=== PATIENT | female | born 1965 | race Caucasian/White ===

== ENCOUNTER 2017-03-31 01:46 | Emergency (ER) | payer SELFPAY ==
[~2017-03-31] VITALS: Ht 162.6 cm; Wt 61.2 kg
--- NOTE | 2017-03-31 02:18 | NUR ---
Pt c/o wound to head with discharge. Pt seen by Dr. Barbour. Pt given first dose of PO ABT. Pt stable for discharge per MD. Pt given ACI. Pt verbalized understanding of dc instructions. Pt ambulated out of er with steady gait.
[2017-03-31 02:20] VITALS: BP 127/88
== END 2017-03-31 02:21 | disposition home or self-care (01) ==
LOC: ER 01:48
DX: L08.9 Local infection of the skin and subcutaneous tissue, unspecified (principal); B95.8 Unspecified staphylococcus as the cause of diseases classified elsewhere; I10 Essential (primary) hypertension; Z88.2 Allergy status to sulfonamides; Z86.14 Personal history of Methicillin resistant Staphylococcus aureus infection
CPT/HCPCS: A4663; Q0162

== ENCOUNTER 2017-05-12 03:50 | Emergency (ER) | payer SELFPAY ==
[~2017-05-12] VITALS: Ht 160 cm; Wt 61.2 kg
--- NOTE | 2017-05-12 04:12 | NUR ---
PT WITH ABD PAIN N/V X 3DAYS DR WILLAMS TO EXAM
[2017-05-12] MEDS ORDERED: ONDANSETRON 4 MG/2 ML VIAL IV ONE (04:15)
[2017-05-12] MEDS ORDERED: HYDROMORPHONE 1 MG/1 ML DISP.SYRIN IV ONE (04:15)
[2017-05-12 04:43] LABS: BASOPHILS # (AUTO) 0.1 K/uL (0.0-8.0); BASOPHILS % (AUTO) 0.8 % (0.0-2.0); CREATININE 0.7 mg/dL (0.6-1.3); EOSINOPHILS # (AUTO) 0.2 K/uL (0.0-0.7); EOSINOPHILS % (AUTO) 3.3 % (0.0-7.0); HEMATOCRIT 43.7 % (37-47); HEMOGLOBIN 14.6 G/DL (12.0-16.0); LYMPHOCYTES # (AUTO) 2.5 K/UL (0.8-4.8); LYMPHOCYTES % (AUTO) 36.8 % (20.5-51.5); MEAN CORPUSCULAR HEMOGLOBIN 30.1 UUG (27.0-31.0); MEAN CORPUSCULAR HGB CONC 34 g/dL (32.0-37.0); MEAN CORPUSCULAR VOLUME 90.1 FL (81.0-99.0); MONOCYTES # (AUTO) 0.4 K/UL (0.1-1.30); MONOCYTES % (AUTO) 6.1 % (0.0-11.0); NEUTROPHILS # (AUTO) 3.6 K/UL (1.8-8.9); PLATELET COUNT (AUTO) 250 K/UL (150-450); POTASSIUM 4.1 mmol/L (3.5-5.1); RED BLOOD CELL COUNT(AUTO) 4.86 MIL/UL (4.2-5.4); WHITE BLOOD COUNT (AUTO) 6.8 K/UL (4.0-11.2)
--- NOTE | 2017-05-12 04:45 | NUR ---
ON MONITOR/PULSE OX ;IV STARTED RT AC 20G SALINE KIKI MEDS GIVEN ORDERED
[2017-05-12 04:49] LABS: BILIRUBIN,DIRECT 0.1 mg/dL (0.0-0.2); BILIRUBIN,TOTAL 0.3 mg/dL (0.2-1.0); TOTAL PROTEIN, SERUM 7.4 g/dL (6.4-8.2)
--- NOTE | 2017-05-12 05:06 | NUR ---
PT UNCOOPERATIVE FOR US GALLBLADDER DR WILLAMS TO TALK TO PT MED ORDERED
[2017-05-12] MEDS ORDERED: KETOROLAC TROMETHAMINE 30 MG INJ IVP ONE (05:15)
[2017-05-12 05:26] VITALS: BP 139/84
[2017-05-12] MEDS ORDERED: KETOROLAC TROMETHAMINE 30 MG INJ ONE (05:28)
--- NOTE | 2017-05-12 05:49 | NUR ---
Patient discharged to home in stable conditon. Written and verbal after care instructions given. Patient verbalizes understanding of instructions.IV D'CD SITE WNL
== END 2017-05-12 05:52 | disposition home or self-care (01) ==
LOC: ER 03:52
DX: K80.50 Calculus of bile duct without cholangitis or cholecystitis without obstruction (principal); K85.90 Acute pancreatitis without necrosis or infection, unspecified; I10 Essential (primary) hypertension; Z76.5 Malingerer [conscious simulation]; Z88.1 Allergy status to other antibiotic agents; Z88.2 Allergy status to sulfonamides; Z88.6 Allergy status to analgesic agent
CPT/HCPCS: 36415; 80048; 80076; 83690; 84484; 85025; 93005; 96374; 96375; 99285; A4663; J1170; J1885; J2405; 70030-TC